=== PATIENT | male | born 1995 | race Hispanic/Latino ===

== ENCOUNTER 2018-03-07 17:35 | Emergency (ER) | payer MEDICAID, OTHER ==
[2018-03-07] MEDS ORDERED: IBUPROFEN 600 MG TABLET ONE (18:07)
== END 2018-03-07 18:17 ==
LOC: EEVIPCON 17:35 → EDH 17:35
DX: S81.011A Laceration without foreign body, right knee, initial encounter (principal); S20.219A Contusion of unspecified front wall of thorax, initial encounter; Z87.891 Personal history of nicotine dependence; V49.49XA Driver injured in collision with other motor vehicles in traffic accident, initial encounter; Y93.89 Activity, other specified; Y92.89 Other specified places as the place of occurrence of the external cause; Y99.8 Other external cause status

== ENCOUNTER 2018-03-07 21:05 | Emergency (ER) | payer OTHER | END 2018-03-07 21:15 | disposition home or self-care (01) | LOC: EDH 21:05 | DX: S81.011A Laceration without foreign body, right knee, initial encounter (principal); V89.2XXA Person injured in unspecified motor-vehicle accident, traffic, initial encounter; Y93.89 Activity, other specified; Y92.89 Other specified places as the place of occurrence of the external cause; Y99.8 Other external cause status ==